=== PATIENT | female | born 1950 | race Caucasian/White ===

== ENCOUNTER → 2017-02-17 | Outpatient (CLI) | payer MEDICARE ==
[~2017-02-17] MED LIST: HCTZ; HYDROCODON-ACE1 EAC5; METHOTREXATE2.5 MG; MOBIC PO
--- NOTE | ~2017-02-17 | MR165 ---
[facility] A Service of [facility] & [facility] RADIOLOGY TEXT RESULTS PATIENT: MALENA DYE LOCATION: [facility] : 50 UNIT #: [id number] AGE: [address]: JULIEN ANDERSON MD SEX: F ORDER DR: [id number] [facility] [address] [place], [place] [address] [id number] O MR#: [id number] Acc #: [id number] NAME: MALENA DYE. : 1950 SEX: F STUDY DATE/TIME: 02/17/2017 14:05 UNIT: [facility] ROOM: STUDY DESCRIPTION: MR Shoulder Wo Contrast Rt Attending Physician: Julien Anderson M.D. Referring Physician: Julien Anderson M.D. Ordering Physician: Physician Non-Staff MRI CENTER REPORT This report is preliminary unless electronic signature is present. EXAM Right shoulder MRI without contrast, 02/17/2017 HISTORY 66-year-old female with right shoulder pain and decreased range of motion for 2 years. No prior right shoulder surgery. COMPARISON Right shoulder MRI from [facility] in [place], [place], 07/01/2015 TECHNIQUE Routine unenhanced multiplanar, multisequence high field MR imaging of the right shoulder was performed. FINDINGS There is a full-thickness tear involving the anterior insertional supraspinatus tendon, which has progressed since the previous examination. The tear measures approximately 1.6 cm in AP dimension with 1.5 cm of retraction. No significant supraspinatus atrophy. There is moderate infraspinatus tendinopathy without tear. Teres minor and subscapularis tendons are intact. Long biceps tendon is intact and well positioned in the bicipital groove. There is degeneration of the superior glenoid labrum without evidence of a displaced tear. Glenohumeral articular cartilage is intact. There is a small glenohumeral effusion. Mild degenerative changes acromioclavicular joint. No subacromial spur. Mild inflammation subacromial/subdeltoid bursa. Bone marrow signal is within expected limits. Visualized musculature is unremarkable. STS. [facility] A Service of [facility] & [facility] RADIOLOGY TEXT RESULTS PATIENT: MALENA DYE LOCATION: [facility] : 50 UNIT #: [id number] AGE: [address]: JULIEN ANDERSON MD SEX: F ORDER DR: IMPRESSION 1. Full-thickness tear involving the anterior insertional supraspinatus tendon which has progressed since the patient's previous right shoulder MRI. The tear measures approximately 1.6 cm in AP dimension with 1.5 cm of retraction. No significant supraspinatus atrophy. 2. Moderate infraspinatus tendinopathy without tear. 3. Mild superior labral degeneration. No evidence of a displaced labral tear. 4. Small glenohumeral effusion. 5. Mild acromioclavicular joint arthrosis with mild inflammation of the subacromial/subdeltoid bursa. Dictated by... Alex Cross M.D. THIS IS AN ELECTRONICALLY VERIFIED REPORT Alex Cross M.D. at 02/21/2017 5:20 PM Kaitlin TD: 02/19/2017 19:19 JOB #: [id number] MRI CENTER REPORT Page 1 of 1 COPY
== END | disposition home or self-care (01) ==
LOC: CMRI 13:43
DX: M75.121 Complete rotator cuff tear or rupture of right shoulder, not specified as traumatic (principal); M19.011 Primary osteoarthritis, right shoulder; M75.21 Bicipital tendinitis, right shoulder; M25.511 Pain in right shoulder; M75.81 Other shoulder lesions, right shoulder; M25.411 Effusion, right shoulder; M75.51 Bursitis of right shoulder
CPT/HCPCS: 73221